=== PATIENT | male | born 1985 ===

== ENCOUNTER 2016-10-27 17:30 | Emergency (ER) | payer MEDICAID | END 2016-10-27 19:12 | disposition left against medical advice (07) | LOC: C.ER 17:30 | DX: R10.9 Unspecified abdominal pain (principal); Z02.9 Encounter for administrative examinations, unspecified ==

== ENCOUNTER 2017-03-25 09:02 | Emergency (ER) | payer MEDICAID ==
[2017-03-25 09:03] VITALS: BMI 23.9
[2017-03-25 09:08] VITALS: RESP 20
[2017-03-25] MEDS ORDERED: Sodium Chloride 0.9% 1,000 ML IV ONE (09:33)
--- NOTE | 2017-03-25 09:50 | C.PDOC ---
History Of Present Illness 31 year old male w/PMHx of gastritis presents to the ED c/o epigastric pain associated with nausea that developed over the past few days,. Pt reports, had one time vomiting episode earlier today. Pt admits, smoking marijuana " helps me with nausea". Otherwise, Patient denies fever, chills, headache, dizziness, neck pain, CP, cough, SOB, dyspnea, diaphoresis, palpitation, hematemesis, diarrhea, melena, back pain, urinary symptoms. Ambulatory in the ED with stable gait, not in any apparent distress. Time Seen by Provider: 03/25/17 09:08 Chief Complaint (Nursing): Abdominal Pain History Per: Patient History/Exam Limitations: no limitations Onset/Duration Of Symptoms: Days Location Of Pain/Discomfort: Epigastric Radiation Of Pain To:: None Quality Of Discomfort: "Pain" Associated Symptoms: Nausea, Vomiting (X1). denies: Fever, Chills, Diarrhea, Chest Pain Recent travel outside of the [place]: No Additional History Per: Patient Past Medical History Reviewed: Historical Data, Nursing Documentation, Vital Signs Vital Signs: Last Vital Signs Temp 98.6 F 03/25/17 11:55 Pulse 83 03/25/17 11:55 Resp 20 03/25/17 11:55 BP 120/69 03/25/17 11:55 Pulse Ox 96 03/25/17 11:55 - Medical History PMH: Anxiety, Bipolar Disorder, Depression, Gastritis, Schizophrenia Denies: Dementia, Emphysema, HIV, HTN, Hyperthyroidism, Hypothyroidism, Pulmonary Embolism, Chronic Kidney Disease, Seizures, Sickle Cell Disease, Sexually Transmitted Disease, Sleep Apnea, TIA Surgical History: Denies: Appendectomy, CABG, Carotid Endarterectomy, Coronary Stent - [facility] Procedures APPLICATION OF SPLINT (03/10/14) CLOSURE SKIN & SUBCUTANEOUS NEC (03/28/14) INDIVID PSYCHOTHERAP NEC (03/21/14) INJECT/INFUSE NEC (08/28/13) OTHER GROUP THERAPY (03/21/14) TETANUS TOXOID ADMINIST (09/27/13) Family History: States: Unknown Family Hx - Social History Hx Tobacco Use: Yes Hx Alcohol Use: Yes Hx Substance Use: No - Immunization History Hx Tetanus Toxoid Vaccination: Yes (11/2015) Hx Influenza Vaccination: No Hx Pneumococcal Vaccination: No Review Of Systems Constitutional: Negative for: Fever, Chills Cardiovascular: Negative for: Chest Pain, Palpitations Respiratory: Negative for: Cough, Shortness of Breath Gastrointestinal: Positive for: Nausea, Vomiting, Abdominal Pain (Epigastric) Genitourinary: Negative for: Dysuria, Frequency Musculoskeletal: Negative for: Back Pain Skin: Negative for: Rash Physical Exam - Physical Exam Appears: Well, Non-toxic, No Acute Distress Skin: Normal Color, Warm, Dry, No Rash Head: Normacephalic Eye(s): bilateral: PERRL Nose: No Discharge, No Deformity Oral Mucosa: Moist, No Drooling Throat: No Erythema, No Exudate Neck: Trachea Midline, Supple Chest: Symmetrical Cardiovascular: Rhythm Regular, No Murmur, No JVD Respiratory: No Decreased Breath Sounds, No Accessory Muscle Use, No Stridor, No Wheezing Gastrointestinal/Abdominal: Bowel Sounds (normal), Soft, Tenderness (Epigastric area), No Organomegaly, No Distention, No Guarding, No Rebound Back: No CVA Tenderness Extremity: Normal ROM, No Deformity, No Swelling Neurological/Psych: Oriented x3, Normal Speech, Normal Cognition ED Course And Treatment - Laboratory Results Result Diagrams: 03/25/17 09:40 03/25/17 09:40 Lab Interpretation: Normal O2 Sat by Pulse Oximetry: 99 (On RA) Pulse Ox Interpretation: Normal Progress Note: Plan: -Blood work, UA ordered. -Urine culture collected. - Pepcid 20 mg IVP given. -Protonix 40 mg IVP given. -Toradol 30 mg IVP given. -Zofran 4 mg IVP given. Pt was OBS in ED for 2.5 hrs and reports improvement in epigastric pain. Afebrile, hemodynamicaly stable. Non-toxic. Pt was given PO intake, tolerate well. PulsEOx 100% RA. ENT: no acute findings. jeni: SUpple, (-) JVD. Lungs: CTA B/L, BS equal B/L. Abd: benign, (-) guarding, (-) rebound, (-) RLQ tenderness. BAck: (-) CVA tenderness. Blood work review and appears normal. Pt advised. ref. to f/u with PMD, GI in 2-3 days for re-eavl. return if any new changes. Disposition Counseled Patient/Family Regarding: Studies Performed, Diagnosis, Need For Followup, Rx Given - Disposition Referrals: [facility] at [facility] [Outside] Griffin Enamorado MD [Staff Provider] - Disposition: HOME/ ROUTINE Disposition Time: 11:21 Condition: STABLE Additional Instructions: Consider to stop smoking cannabis if not medically recommend Take medication as prescribed Follow up with PMD, GI in 2-3 days for re-evaluation. Return to ED if any worsening or new changes. Prescriptions: Pantoprazole Sodium [Protonix] 40 mg PO DAILY #14 tablet. Sucralfate [Carafate] 1 gm PO TID #20 tab Instructions: How to Stop Smoking (ED), Acute Nausea and Vomiting (ED), Epigastric Pain (ED) Forms: [employer] ([place]) - Clinical Impression Clinical Impression: Abdominal pain, Vomiting, Cannabis abuse - PA / MARBLE COPER / Resident Statement MD/DO has reviewed & agrees with the documentation as recorded. - Scribe Statement The provider has reviewed the documentation as recorded by the Scribe All Basurto All medical record entries made by the Scribe were at my direction and personally dictated by me. I have reviewed the chart and agree that the record accurately reflects my personal performance of the history, physical exam, medical decision making, and the department course for this patient. I have also personally directed, reviewed, and agree with the discharge instructions and disposition.
[2017-03-25] MEDS ORDERED: Sodium Chloride 0.9% 1,000 ML ONE (09:52)
[2017-03-25 09:53] LABS: BASO % 0.4 % (0.0-2.0); EOS # 0.2 K/uL (0.0-0.7); EOS % 1.9 % (0.0-4.0); HEMATOCRIT 43.9 % (35.0-51.0); LYMPH # 1.6 K/uL (1.0-4.3); LYMPH % 19.2 % (20.0-40.0); MEAN CELL VOLUME 95.1 fL (80.0-94.0); MEAN CORPUSCULAR HEMOGLOBIN 31.9 pg (27.0-31.0); MEAN CORPUSCULAR HGB CONC 33.6 g/dL (33.0-37.0); MEAN PLATELET VOLUME 8.7 fL (7.2-11.7); MONO # 0.6 K/uL (0.0-0.8); MONO % 6.7 % (0.0-10.0); RED CELL DISTRIBUTION WIDTH 13.1 % (11.5-14.5); WHITE BLOOD COUNT 8.2 K/uL (4.8-10.8)
[2017-03-25 10:09] LABS: ALB/GLOB RATIO 1.6 (1.0-2.1); ALKALINE PHOSPHATASE 106 U/L (38-126); ALT/SGPT 30 U/L (21-72); AST/SGOT 25 U/L (17-59); BILIRUBIN,TOTAL 0.5 mg/dL (0.2-1.3); BLOOD UREA NITROGEN 14 mg/dL (9-20); CALCIUM 9.1 mg/dl (8.6-10.4); CARBON DIOXIDE 26 mmol/L (22-30); CHLORIDE 101 mmol/L (98-107); GFR AFRICAN-AMERICAN > 60; GLUCOSE,RANDOM 100 mg/dL (75-110); POTASSIUM 3.8 mmol/L (3.6-5.2); SODIUM 138 mmol/L (132-148); TOTAL PROTEIN 7.8 g/dL (6.3-8.3)
[2017-03-25 11:56] VITALS: BP 120/69; PULSE 83; TEMP 98.6
[2017-03-28 02:10] VITALS: O2SAT 99
== END 2017-03-25 12:17 | disposition home or self-care (01) ==
LOC: C.ER 09:02
DX: R10.9 Unspecified abdominal pain (principal); R11.10 Vomiting, unspecified; F12.10 Cannabis abuse, uncomplicated
CPT/HCPCS: 80053; 83690; 85025; 96361; 96365; 96375; 99284; C9113; J1885; J2405; J2765; J7040

== ENCOUNTER 2018-08-15 13:07 | Emergency (ER) | payer SELFPAY ==
[2018-08-15 13:12] VITALS: BMI 22.6
[2018-08-15 13:13] VITALS: BP 117/79; PULSE 103; RESP 18; TEMP 98; O2SAT 98
--- NOTE | 2018-08-15 14:43 | C.PDOC ---
History Of Present Illness 33 y/o M c PMHx gastritis p/w abdominal pain x 10 days. Reports pain is L sided, nonradiating, associated with loose stool. Denies fever, chills, bleeding, recent travel, camping/hiking. Patient is requesting a GI referral. States smoking marijuana is only thing that helps pain. Time Seen by Provider: 08/15/18 14:15 Chief Complaint (Nursing): Abdominal Pain Past Medical History Vital Signs: Last Vital Signs Temp 98 F 08/15/18 13:12 Pulse 103 H 08/15/18 13:12 Resp 18 08/15/18 13:12 BP 117/79 08/15/18 13:12 Pulse Ox 98 08/15/18 13:12 - Medical History PMH: Anxiety, Bipolar Disorder, Depression, Gastritis, Schizophrenia Denies: Dementia, Emphysema, HIV, HTN, Hyperthyroidism, Hypothyroidism, Pulmonary Embolism, Chronic Kidney Disease, Seizures, Sickle Cell Disease, Sexually Transmitted Disease, Sleep Apnea, TIA Surgical History: Denies: Appendectomy, CABG, Carotid Endarterectomy, Coronary Stent - [facility] Procedures APPLICATION OF SPLINT (03/10/14) CLOSURE SKIN & SUBCUTANEOUS NEC (03/28/14) INDIVID PSYCHOTHERAP NEC (03/21/14) INJECT/INFUSE NEC (08/28/13) OTHER GROUP THERAPY (03/21/14) TETANUS TOXOID ADMINIST (09/27/13) Family History: States: Unknown Family Hx - Social History Hx Tobacco Use: Yes Hx Alcohol Use: No Hx Substance Use: Yes - Immunization History Hx Tetanus Toxoid Vaccination: Yes (11/2015) Hx Influenza Vaccination: No Hx Pneumococcal Vaccination: No Review Of Systems Except As Marked, All Systems Reviewed And Found Negative. Constitutional: Negative for: Fever Respiratory: Negative for: Shortness of Breath Physical Exam - Physical Exam Additional Physical Exam Comments: gen nad head nc/at eyes no scleral icterus ent mmm cv reg rate abd soft, nt extremities no deformity skin no rash neuro alert ED Course And Treatment O2 Sat by Pulse Oximetry: 98 Medical Decision Making Medical Decision Making: No abdominal tenderness at this time in this patient who states he gets abdominal pain often intermittently and is requesting GI consultation. CT imaging no indicated at this time. Will refer to GI. Instructed to return to ED for worsening pain, more focal pain, fever, vomiting, or any other problem. Disposition - Disposition Referrals: Griffin Enamorado MD [Staff Provider] - Disposition: HOME/ ROUTINE Disposition Time: 14:41 Condition: GOOD Prescriptions: Famotidine/Ca Carb/Mag Hydrox [Pepcid Complete Tablet Chew] 1 each PO BID #28 tab.chew Instructions: Acute Abdomen (Belly Pain) - Clinical Impression Clinical Impression: Abdominal pain
== END 2018-08-15 14:53 | disposition home or self-care (01) ==
LOC: C.ER 13:07
DX: R10.9 Unspecified abdominal pain (principal)